=== PATIENT | female | born 1980 | race Caucasian/White ===

== ENCOUNTER 2020-08-12 16:15 | Outpatient (CLI) | payer BC, SELFPAY ==
--- NOTE | ~2020-08-12 | XR_ITS ---
EXAMINATION: XR shoulder LT min 2V DATE: 08/12/2020 16:37 INDICATION: Left shoulder pain. TECHNIQUE: 4 views of left shoulder were obtained. COMPARISON: Chest 2 views 01/04/2007 FINDINGS: Bone alignment is normal. No fracture. Joint spaces are well maintained. IMPRESSION: 1. Normal left shoulder. Reviewed, dictated and finalized at location A. IMPRESSION: 1. Normal left shoulder.
== END 2020-08-12 16:16 | disposition home or self-care (01) ==
LOC: CHSIMG 16:21
PROVIDERS: PCP Internal Medicine; Visit Provider Nurse Practitioner Family
DX: M25.512 Pain in left shoulder (principal)
CPT/HCPCS: 73030

== ENCOUNTER 2021-03-30 10:54 | Outpatient (CLI) | payer BC, SELFPAY ==
[2021-03-30 13:42] LABS: Influenza A QL RT-PCR Negative (Negative); Influenza B QL RT-PCR Negative (Negative); SARS-CoV-2 RNA PCR Negative (Negative)
== END 2021-03-30 10:55 | disposition home or self-care (01) ==
LOC: CHSLAB 10:57
PROVIDERS: PCP Internal Medicine; Visit Provider Internal Medicine
DX: J06.9 Acute upper respiratory infection, unspecified (principal); Z20.822 Contact with and (suspected) exposure to COVID-19
CPT/HCPCS: 87502; C9803; U0003; U0005

== ENCOUNTER 2022-06-18 07:42 | Outpatient (CLI) | payer BC, SELFPAY ==
--- NOTE | ~2022-06-18 | MM_ITS ---
EXAMINATION: MM screening yoseph BI w chaparrita HISTORY: Screening mammogram TECHNIQUE: Craniocaudal and mediolateral oblique 3-D tomosynthesis images were obtained and synthetic 2-D images were generated. CAD analysis was submitted and interpreted. COMPARISON: No prior mammogram is available for comparison at this institution. BREAST PARENCHYMAL COMPOSITION: The breasts are heterogeneously dense, which may obscure small masses . FINDINGS: There is no evidence of suspicious mass, calcification, or architectural distortion to sugg est malignancy in either breast. There has been no suspicious interval change. IMPRESSION: 1. No mammographic evidence of malignancy. 2. Recommend routine screening mammography in one year. BI-RADS Category 1: Negative Reviewed, dictated and finalized at location A. CONTROLLER
== END 2022-06-18 07:43 | disposition home or self-care (01) ==
LOC: CHSIMG 07:45
PROVIDERS: PCP Internal Medicine; Visit Provider Obstetrics & Gynecology
DX: Z12.31 Encounter for screening mammogram for malignant neoplasm of breast (principal)
CPT/HCPCS: 77063; 77067

== ENCOUNTER 2023-12-06 07:12 | Outpatient (CLI) | payer BC, SELFPAY ==
--- NOTE | ~2023-12-06 | MM_ITS ---
EXAMINATION: MM screening yoseph BI w chaparrita HISTORY: Screening TECHNIQUE: Craniocaudal and mediolateral oblique 3-D tomosynthesis images were obtained and synthetic 2-D images were generated. CAD analysis was submitted and interpreted. COMPARISON: 06/18/2022 BREAST PARENCHYMAL COMPOSITION: Dense: The breasts are extremely dense, which lowers the sensitivity of mammography. FINDINGS: There is no evidence of suspicious mass, calcification, or architectural distortion to sugg est malignancy in either breast. There has been no suspicious interval change. IMPRESSION: 1. No mammographic evidence of malignancy. 2. Recommend routine screening mammography in one year. BI-RADS Category 1: Negative Reviewed, dictated and finalized at location B.
== END 2023-12-06 07:13 | disposition home or self-care (01) ==
LOC: CHSIMG 07:13
PROVIDERS: PCP Internal Medicine; Visit Provider Obstetrics & Gynecology
DX: Z12.31 Encounter for screening mammogram for malignant neoplasm of breast (principal)
CPT/HCPCS: 77063; 77067

== ENCOUNTER 2024-12-11 10:18 | Outpatient (CLI) | payer BC, SELFPAY ==
--- NOTE | ~2024-12-11 | MM_ITS ---
EXAMINATION: MM screening yoseph BI w chaparrita HISTORY: Screening TECHNIQUE: Craniocaudal and mediolateral oblique 3-D tomosynthesis images were obtained and synthetic 2-D images were generated. CAD analysis was submitted and interpreted. COMPARISON: Comparison to multiple prior studies sequentially, with oldest reviewed study dated 11/15. BREAST PARENCHYMAL COMPOSITION: Dense: The breasts are extremely dense, which lowers the sensitivity of mammography. FINDINGS: There is no evidence of suspicious mass, calcification, or architectural distortion to sugg est malignancy in either breast. There has been no suspicious interval change. IMPRESSION: 1. No mammographic evidence of malignancy. 2. Recommend routine screening mammography in one year. BI-RADS Category 1: Negative Reviewed, dictated and finalized at location A.
--- OUTSIDE RECORDS SUMMARY | 2024-12-11 10:20 | XMS_ITS | Clinical Summary ---
Author Organization [facility] Address [address] [place] [address] Care Team Providers Care Electric Blasting Cap Assembler Name Role Phone Tim Hayden MD Primary Care Provider Source Comments [facility],non-owned Affiliates and Associated Physician Practices is amultiple site organization consisting of ambulatory clinics and hospital sitesin [place], [place] and [place]. This disclosure is being madepursuant to the Care Everywhere program and may not contain all information available regarding this patient. Last updated 18.[facility] Allergies Active Allergy Reactions Criticality Noted Date Comments Sulfa Drugs Rash Medium 03/25/2016 Medications * Be aware that medications may not be up to date on this document. Alwaysverify current medications with the patient. levothyroxine (SYNTHROID) 125 MCG tablet Take 125 mcg by mouth daily before breakfast Active escitalopram (LEXAPRO) 20 MG tablet Take 20 mg by mouth once daily Active Social History Tobacco Use Types Packs/Day Years Used Date Smoking Tobacco: Never Smokeless Tobacco: Never Alcohol Use Standard Drinks/Week Comments Yes 0 (1 standard drink = 0.6 oz pur e alcohol) Comments Unknown Sex and Gender Information Value Date Recorded Sex Assigned at Not on file Legal Sex Female 6:25 AM PATIENT RELATIONS LIAISON Gender Identity Not on file Sexual Orientation Not on file Last Filed Vital Signs Vital Sign Reading Time Taken Comments Blood Pressure 110/70 03/25/2016 10:17 AM PATIENT RELATIONS LIAISON Pulse 68 03/25/2016 10:17 AM PATIENT RELATIONS LIAISON Temperature 36.8 C (98.2 F) 03/25/2016 10:17 AM PATIENT RELATIONS LIAISON Respiratory Rate 15 03/25/2016 10:17 AM PATIENT RELATIONS LIAISON Oxygen Saturation - - Inhaled Oxygen Concentration - - Weight 59.9 kg (132 lb) 03/25/2016 10:17 AM PATIENT RELATIONS LIAISON Height 170.2 cm (5' 7) 03/25/2016 10:17 AM PATIENT RELATIONS LIAISON Body Mass Index 20.67 03/25/2016 10:17 AM PATIENT RELATIONS LIAISON Plan of Treatment Health Maintenance Due Date Last Done Comments LIPID TESTING 1981 MAMMOGRAM 1981 HIV SCREENING 1996 HEPATITIS C SCREENING 12/09/1999 DTAP/TDAP/TD VACCINES (1 - Tdap) 2000 HEPATITIS B VACCINE (1 of 3 - 19+ 3-dose series) 2000 HPV VACCINE (1 - 3-dose SCDM series) 2008 COVID-19 VACCINE (1 - 2023-2 5 season) 2023 DEPRESSION SCREENING 04/29/2024 INFLUENZA VACCINE (#1) 2024 ZOSTER VACCINE (1 of 2) 12/14/2031 HIB VACCINE Aged Out No longer eligi ble based on patient's age to complete this topic MENINGOCOCCAL (Group B) VACC INE SHARED DECISION-MAKING Aged Out No longer eligibl e based on patient's age to complete this topic MENINGOCOCCAL GROUPS A/C/Y/W VACCINE Aged Out No longer eligible b ased on patient's age to complete this topic PNEUMOCOCCAL VACCINE Aged Out No long er eligible based on patient's age to complete this topic Insurance ANTHEM Care Teams Electric Blasting Cap Assembler Relationship Specialty Start Date End Date Tim Hayden MD [address] [place] [address] PCP - General Internal Medicine 03/25/16
--- OUTSIDE RECORDS SUMMARY | 2024-12-11 10:20 | XMS_ITS | Clinical Summary ---
Author Organization [facility] Address [address] [place] [id number] Care Team Providers Care Manager Of Investigations Name Role Phone Tim Hayden MD Primary Care Provider [phone] Allergies Active Allergy Reactions Criticality Noted Date Comments Sulfa (Sulfonamide Antibiotics) Sulfanilamide Rash Reaction: Rash, , Medications LORazepam (ATIVAN) 0.5 mg tablet take 2 tablet by oral route every day as needed for sleep 0 0 05/26/2013 Active escitalopram (LEXAPRO) 10 mg tablet take 1 tablet by oral route every day 0 0 05/26/2013 Active levonorgestrel & ethinyl estradiol (CAMRESE) 0.15 mg-30 mcg tablets,dose pack,3 month take 1 tablet by oral route every day 0 0 05/26/2013 Active ferrous gluconate (ferrous gluconate) 324 mg (37.5 mg of elemental iron) tablet tablet take once daily 90 0 07/31/2016 Active B-complex with vitamin C capsule take once daily 90 0 07/31/2016 Active levothyroxine (SYNTHROID, LEVOTHROID) 112 mcg tablet TAKE ONE TABLET BY MOUTH EVERY DAY (DOSE DECREASE) 90 tablet 1 02/15/2017 Active Active Problems Problem Noted Date Diagnosed Date Hypothyroidism 11/14/2016 Low back pain 11/14/2016 Arthralgia 10/31/2016 Postoperative hypothyroidism 05/26/2013 Overview (08/02/2016): POSTSURGICAL HYPOTHYROID Surgical History Surgery Date Site/Laterality Comments OTHER SURGICAL HISTORY 2010 Thyroidectomy 07/07 THYROIDECTOMY 2010 Thyroidectomy Medical History Medical History Date Comments Disorder of thyroid Thyroid dise ase Disorder of thyroid 2007 Thyroid dise ase Hx Other Medical baby delivery Depression Depression Family History Medical History Relation Name Comments Hypertension Father Hypertension; Hypothyroidism Other Family histor y of Hypothyroidism; Relation Name Status Comments Father Other Social History Tobacco Use Types Packs/Day Years Used Date Smoking Tobacco: Never Smokeless Tobacco: Never Alcohol Use Standard Drinks/Week Comments Yes 0 (1 standard drink = 0.6 oz pur e alcohol) Comments Unknown Sex and Gender Information Value Date Recorded Sex Assigned at Not on file Legal Sex Female 4:49 PM COMPLAINT 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 Gender Identity Not on file Sexual Orientation Not on file Obstetrics History Last Filed Vital Signs Vital Sign Reading Time Taken Comments Blood Pressure 118/84 11/14/2016 2:14 PM CDT Pulse 110 11/14/2016 2:14 PM CDT Temperature 36.9 C (98.5 F) 11/14/2016 2:14 PM CDT Respiratory Rate 22 11/14/2016 2:14 PM CDT Oxygen Saturation 98% 11/14/2016 2:14 PM CDT Inhaled Oxygen Concentration - - Weight 63.2 kg (139 lb 6.4 oz) 11/14/2016 2:14 P M CDT Height 170.2 cm (5' 7) 11/14/2016 2:14 PM CDT Body Mass Index 21.83 11/14/2016 2:14 PM CDT Plan of Treatment [place] [address] [facility] [place] [id number] Care Teams Manager Of Investigations Relationship Specialty Start Date End Date Tim Hayden MD PCP - General 07/31/16
--- OUTSIDE RECORDS SUMMARY | 2024-12-11 10:20 | XMS_ITS | Clinical Summary ---
Author Organization [facility] Address [address] [place] [address] [place] [address] Care Team Providers Care Wreath Machine Operator Name Role Phone Unavailable Primary Care Provider Unavailabl e Allergies Active Allergy Reactions Criticality Noted Date Comments Sulfa (Sulfonamide Antibiotics) Rash High 06/2021 Medications SUMAtriptan (IMITREX) 100 mg tablet Take 1 tablet(s) by mouth as needed for migraine 9 Tablet 2 11/30/2021 12:25 PM CDT 2 Active levothyroxine 100 mcg tablet Take 1 Tablet (100 mcg) by mouth daily. 30 Tablet 11/05/2022 12:09 PM CDT 3 Active escitalopram oxalate (LEXAPRO) 20 mg tablet TAKE 1/2 - 1 TABLET BY MOUTH DAILY 90 Tablet 3 04/09/2023 12:42 PM TECHNICAL RECRUITER 3 Active fluticasone propionate (FLONASE) 50 mcg/spray [place], Suspension nasal inhaler ADMINISTER 1 SPRAY IN EACH NOSTRIL TWICE DAILY DIRECTED 16 Gram 03/09/2023 3:19 PM TECHNICAL RECRUITER 3 Active LORazepam (ATIVAN) 1 mg tablet TAKE 1/2 TO 1 TABLET BY MOUTH TWICE DAILY NEEDED 20 Tablet 05/01/2023 4:26 PM TECHNICAL RECRUITER 4 Active LORazepam (ATIVAN) 1 mg tablet TAKE 1/2 TO 1 TABLET BY MOUTH TWICE DAILY NEEDED 20 Tablet 4 Active escitalopram oxalate (LEXAPRO) 20 mg tablet Take 0.5-1 Tablets (10-20 mg) by mouth daily. 90 Tablet 3 11/16/2024 12:33 PM CDT 5 Active levothyroxine 112 mcg tablet Take 1 Tablet (112 mcg) by mouth daily. 90 Tablet 3 11/16/2024 12:33 PM CDT 5 Active Encounters Date Type Department Care Team Description 12/01/2024 External Device Data [facility] ABSTRACTION Provider, Abstract 11/11/2024 External Device Data [facility] ABSTRACTION Provider, Abstract 11/10/2024 External Device Data [facility] ABSTRACTION Provider, Abstract 10/13/2024 External Device Data [facility]CTION Provider, Abstract 09/29/2024 External Device Data [facility]CTION Provider, Abstract 09/17/2024 External Device Data [facility] ABSTRACTION Provider, Abstract 09/16/2024 External Device Data [facility] ABSTRACTION Provider, Abstract 09/15/2024 External Device Data [facility] ABSTRACTION Provider, Abstract from Last 3 Months Social History Tobacco Use Types Packs/Day Years Used Date Smoking Tobacco: Never Assessed Comments Unknown Sex and Gender Information Value Date Recorded Sex Assigned at Not on file Legal Sex Female 12:51 PM CDT Gender Identity Not on file Sexual Orientation Not on file Plan of Treatment Health Maintenance Due Date Last Done Comments HPV VACCINES (1 - 3-dose series) 1996 DTAP/TDAP/TD VACCINES (1 - Tdap) 2000 HEPATITIS B VACCINES (1 of 3 - 19+ 3-dose series) 11/27 HPV/Cotest (21-29) 2002 CERVICAL CANCER SCREENING 12/14/2011 HPV/Cotest (30-65) 12/14/2011 PAP SMEAR 12/14/2011 BREAST CANCER SCREENING 2021 INFLUENZA VACCINE (#1) 2024 [place] [address] [facility] [employer] [facility] [facility]
== END 2024-12-11 10:19 | disposition home or self-care (01) ==
LOC: CHSIMG 10:18
PROVIDERS: PCP Internal Medicine; Visit Provider Obstetrics & Gynecology
DX: Z12.31 Encounter for screening mammogram for malignant neoplasm of breast (principal)
CPT/HCPCS: 77063; 77067

== ENCOUNTER 2025-01-03 19:33 | Emergency (ER) | payer BC, SELFPAY ==
--- NOTE | ~2025-01-03 | XR_ITS ---
EXAMINATION: XR toe 1st RT min 2V, 01/03/2025 19:38 CDT HISTORY: dropped nash on toe. DORSAL RIGHT 1ST DIGIT PAIN. COMPARISON: No comparisons available. Findings: No acute fracture or malalignment. No significant degenerative changes. Soft tissues unremarkable. Impression: No acute fracture or malalignment. Reviewed, dictated and finalized at location A. Impression: No acute fracture or malalignment.
[2025-01-03 19:34] VITALS: BP 124/81; PULSE 83; RESP 18; TEMP 36.4; O2SAT 100
--- NOTE | 2025-01-03 19:38 | ED.GENADULT ---
HPI - General Adult General Chief complaint: Wound/Laceration Stated complaint: R Big Laceration Time Seen by Provider: 01/03/25 19:36 History of Present Illness HPI narrative: Danielle is a previously healthy 44F that presented to the ED after she dropped a pot on her right big toe and sustained a laceration. No other injuries reported. Related Data Home Medications ?Medication ?Instructions ?Recorded ?Confirmed ?Last Taken ?Type levothyroxine 100 mcg capsule 100 mcg PO DAILY 01/31/22 02/26/24 Unknown History sumatriptan succinate 100 mg tablet See Rx Instructions PO .COMPLEX 01/31/22 02/26/24 Unknown History Allergies Allergy/AdvReac Type Severity Reaction Status Date / Time Sulfa (Sulfonamide Allergy Mild Rash Verified 02/26/24 15:17 Antibiotics) Review of Systems Review of Systems: All systems reviewed & are unremarkable except as noted in HPI and below PMFSH Past Medical History Medical History Screening mammogram, encounter for Vaginal delivery 08/25/06 Sandeep mother had blood transfusion after 04/29/12 Robert mother had blood transfusion after Thyroid disease Anxiety and depression Anemia Surgical History Surgical History History of thyroidectomy (2009) Family History Family History Father Hypertension Grandparent Heart disease paternal grandfather Social History Social History Smoking status: Never smoker Second hand tobacco smoke exposure: No Alcohol intake: current Drinks per week: 10 Substance use: never Substance use type: does not use Do You Feel Safe in your Home?: Yes Lack of Transportation: No Lack of Food: Never True Current Housing: I Have Housing Concerned About Future Housing: No Difficulty Paying Gas/Electric Bills: No Difficulty Paying for Meds: No Currently Unemployed: No Education: Bachelor's Degree Difficulty w/ Childcare or Family Care: No Living arrangements: with family Additional living arrangements comments: Occupation/Education: occupation 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 Gender identity (if verbalized by the patient): Female Sexual Orientation (if Verbalized by the Patient): Straight or Heterosexual Exam Const: General: cooperative, healthy appearing, comfortable, no acute distress, well developed, alert, awake and Physically active Orientation/consciousness: oriented to person, oriented to place and oriented to time HENMT: Head: normal to inspection, normocephalic and atraumatic Ears: hearing grossly normal bilaterally and external ears normal Face/Nose/Sinus: Normal external nose present Eyes: General: appearance normal, both eyes and all related structures Periorbital: periorbital findings normal Sclera: sclerae normal Pupils: Equal, round and reactive pupils present Neck: Neck: normal visual inspection Chest: Chest palpation & inspection: normal inspection of the chest Resp: Effort & Inspection: normal respiratory effort, able to speak in complete sentences and no respiratory distress Cardio: Jugular venous distension: no JVD Skin: General skin exam: normal color and no rashes or lesions noted Other: 1.5 cm horizontal laceration on the first great Neuro: General: oriented to person, oriented to place and oriented to time Cranial nerves: Yes Equal, round and reactive pupils present Extrem: General: normal to inspection Course Course Emergency Course: Declined Pain Meds. EXAMINATION: XR toe 1st RT min 2V, 01/03/2025 19:38 CDT HISTORY: dropped nash on toe. DORSAL RIGHT 1ST DIGIT PAIN. COMPARISON: No comparisons available. Findings: No acute fracture or malalignment. No significant degenerative changes. Soft tissues unremarkable. Impression: No acute fracture or malalignment. Vital Signs Vital signs: Vital Signs Temperature 97.6 F 01/03/25 19:34 Pulse Rate 83 01/03/25 19:34 Respiratory Rate 18 01/03/25 19:34 Blood Pressure 124/81 01/03/25 19:34 Pulse Oximetry 100 01/03/25 19:34 Oxygen Delivery Room Air 01/03/25 19:34 Temperature 97.6 F 01/03/25 19:34 Pulse Rate 83 01/03/25 19:34 Respiratory Rate 18 01/03/25 19:34 Blood Pressure 124/81 01/03/25 19:34 Pulse Oximetry 100 01/03/25 19:34 Oxygen Delivery Room Air 01/03/25 19:34 Procedures Laceration Laceration 1: Date: 01/03/25 Time: 20:04 Site: other (right great toe) Size (cm): 2 Description: linear Depth: simple, single layer ====== Skin Level ====== Skin layer closed with: dermabond ====== Subcutaneous Layer ====== ====== Muscle Layer ====== ====== Tendon Layer ====== Medical Decision Making Vital Signs Vital Signs: Vital Signs Temperature 97.6 F 01/03/25 19:34 Pulse Rate 83 01/03/25 19:34 Respiratory Rate 18 01/03/25 19:34 Blood Pressure 124/81 01/03/25 19:34 Pulse Oximetry 100 01/03/25 19:34 Oxygen Delivery Room Air 01/03/25 19:34 Temperature 97.6 F 01/03/25 19:34 Pulse Rate 83 01/03/25 19:34 Respiratory Rate 18 01/03/25 19:34 Blood Pressure 124/81 01/03/25 19:34 Pulse Oximetry 100 01/03/25 19:34 Oxygen Delivery Room Air 01/03/25 19:34 Discharge Plan Discharge Clinical Impression: Laceration Patient Disposition: Home Condition: Stable Instructions: Skin Adhesive Care (ED) Patient Language: Georgian Prescriptions: No Action levothyroxine 100 mcg capsule 100 mcg PO DAILY sumatriptan succinate 100 mg tablet See Rx Instructions PO .COMPLEX Rx Instructions: take 1 tab at onset of headache; if no relief, may repeat 1 tab after at least 2 hrs; max = 2 tabs/24 hrs PO Follow-up/Referrals: Tim Hayden MD [Primary Care Provider, Internal Medicine]
--- NOTE | 2025-01-03 19:43 | PC.NURSE ---
RIGHT GREAT TOE LACERATION CLEANED WITH WOUND CLEANSER. IDA WITH RADIOLOGY CURRENTLY AT THE BEDSIDE
--- OUTSIDE RECORDS SUMMARY | 2025-01-03 19:50 | XMS_ITS | Clinical Summary ---
Author Organization [facility] Address [address] [place] [address] Care Team Providers Care Boiler Testing Technician Name Role Phone Tim Hayden MD Primary Care Provider [phone] Source Comments [facility],non-owned Affiliates and Associated Physician Practices is amultiple site organization consisting of ambulatory clinics and hospital sitesin [place], [place], [place] and [place]. This disclosure is being madepursuant to the Care Everywhere program and may not contain all information available regarding this patient. Last updated 18.[facility] Allergies Active Allergy Reactions Criticality Noted Date [...] on file Legal Sex Female 6:25 AM LEATHER PRODUCTION ARTISAN Gender Identity Not on file Sexual Orientation Not on file Last Filed Vital Signs Vital Sign Reading Time Taken Comments Blood Pressure 110/70 03/25/2016 10:17 AM LEATHER PRODUCTION ARTISAN Pulse 68 03/25/2016 10:17 AM LEATHER PRODUCTION ARTISAN Temperature 36.8 C (98.2 F) 03/25/2016 10:17 AM LEATHER PRODUCTION ARTISAN Respiratory Rate 15 03/25/2016 10:17 AM LEATHER PRODUCTION ARTISAN Oxygen Saturation - - Inhaled Oxygen Concentration - - Weight 59.9 kg (132 lb) 03/25/2016 10:17 AM LEATHER PRODUCTION ARTISAN Height 170.2 cm (5' 7) 03/25/2016 10:17 AM LEATHER PRODUCTION ARTISAN Body Mass Index 20.67 03/25/2016 10:17 AM LEATHER PRODUCTION ARTISAN Plan of Treatment Health Maintenance Due Date Last Done Comments LIPID TESTING 1981 MAMMOGRAM 1981 HIV SCREENING 1996 HEPATITIS C SCREENING 12/09/1999 DTAP/TDAP/TD VACCINES (1 - Tdap) 2000 HEPATITIS B VACCINE (1 of 3 - 19+ 3-dose series) 2000 HPV VACCINE (1 - 3-dose SCDM series) 2008 DEPRESSION SCREENING 04/29/2024 COVID-19 VACCINE (1 - 2023-2 5 season) 2024 INFLUENZA VACCINE (#1) 2024 ZOSTER VACCINE (1 [...] complete this topic Insurance ANTHEM Care Teams Boiler Testing Technician Relationship Specialty Start Date End Date Tim Hayden MD [address] [place] [address] PCP - General Internal Medicine 03/25/16
--- OUTSIDE RECORDS SUMMARY | 2025-01-03 19:50 | XMS_ITS | Clinical Summary ---
Author Organization [facility] Address [address] [place] [address] [place] [address] Care Team Providers Care Change Over Name Role Phone Unavailable Primary Care Provider [...] DAILY 90 Tablet 3 04/09/2023 12:42 PM ASSESSMENT RN 3 Active fluticasone propionate (FLONASE) 50 mcg/spray [place], Suspension nasal inhaler ADMINISTER 1 SPRAY IN EACH NOSTRIL TWICE DAILY DIRECTED 16 Gram 03/09/2023 3:19 PM ASSESSMENT RN 3 Active LORazepam (ATIVAN) 1 mg tablet TAKE 1/2 TO 1 TABLET BY MOUTH TWICE DAILY NEEDED 20 Tablet 05/01/2023 4:26 PM ASSESSMENT RN 4 Active LORazepam (ATIVAN) 1 mg tablet TAKE 1/2 TO 1 TABLET BY MOUTH TWICE DAILY NEEDED 20 Tablet 4 Active escitalopram oxalate (LEXAPRO) 20 mg tablet Take 0.5-1 Tablets (10-20 mg) by mouth daily. 90 Tablet 3 12/31/2024 10:53 AM CDT 5 Active levothyroxine 112 mcg tablet Take 1 Tablet (112 mcg) by mouth daily. 90 Tablet 3 12/31/2024 10:53 AM CDT 5 Active amoxicillin-cla vulanate (AUGMENTIN) 875-125 mg tablet Take 1 Tablet by mouth 2 times daily for 7 days. 14 Tablet 12/31/2024 10:53 AM CDT 5 01/08/20 25 Active Encounters Date Type Department Care Team [...] Health Maintenance Due Date Last Done Comments DTAP/TDAP/TD VACCINES (1 - Tdap) 2000 HEPATITIS B VACCINES (1 of 3 - 19+ 3-dose series) 11/27 HPV/Cotest (21-29) 2002 HPV VACCINES (1 - 3-dose SCDM series) 2008 CERVICAL CANCER SCREENING 12/14/2011 HPV/Cotest (30-65) 12/14/2011 PAP SMEAR 12/14/2011 BREAST CANCER SCREENING 2021 INFLUENZA VACCINE (#1) 2024 [place] [address] [facility] [employer] [facility] [facility]
--- NOTE | 2025-01-03 20:02 | PC.NURSE ---
PATIENT WAS MOVED FROM 7 DOWN TO ROOM 5. PATIENT AMBULATED WITH MINIMAL DIFFICULTY.
--- NOTE | 2025-01-03 20:06 | PC.NURSE ---
DERMABOND PLACED BY DR FREDERICK. EDUCATION PROVIDED ON HOW TO CARE FOR WOUND AT HOME. VERBALIZED UNDERSTANDING
== END 2025-01-03 20:07 | disposition home or self-care (01) ==
PROVIDERS: Emergency Provider Family Medicine; PCP Internal Medicine
DX: S91.111A Laceration without foreign body of right great toe without damage to nail, initial encounter (principal); W22.8XXA Striking against or struck by other objects, initial encounter
CPT/HCPCS: 12001; 73660; 99283